=== PATIENT | female | born 1980 | race Caucasian/White ===

== ENCOUNTER 2021-01-06 09:07 | Inpatient (IN) | payer OTHER ==
--- NOTE | 2021-01-04 16:46 | History and Physical Report ---
History of Present Illness Date of examination: 01/06/21 History of present illness: Pt is a G6 P 3023 with EDC of 3 will 39w 2d on 01/06 when she will present for her scheduled RLTCS. Uncomplicated except for anemia. H/o C/S x1. She had an abnormal quad screen but normal CF DNA testing. Past History Past Medical History: other (anemia) Past Surgical History: section Medications and Allergies Allergies Allergy/AdvReac Type Severity Reaction Status Date / Time No Known Allergies Allergy Unverified 01/06/21 09:34 Home Medications Medication Instructions Recorded Confirmed Last Taken Type No Known Home Medications [No 01/06/21 01/06/21 Unknown History Reported Home Medications] Active Meds: see EMR charting Review of Systems All systems: negative (except HPI) - Vital Signs Vital signs: see EMR charting - Physical Exam Cardiovascular: Regular rate Lungs: Positive: Clear to auscultation, Normal air movement Abdomen: Positive: normal appearance, soft Results Result Diagrams: 01/06/21 09:00 All other labs normal. Assessment and Plan - Patient Problems (1) Previous delivery, antepartum Current Visit: No Status: Acute Plan to address problem: PT for scheduled RLTCS at 39w 2 days on 01/06. PT fully consented. Patient fully consented for the surgery. Risks, benefits, and alternatives were all discussed with the patient including risk of bleeding, infection, and potential for injury. Patient understands and accepts these risks. Patient agrees to proceed with surgery. All questions were answered.
[2021-01-06] MEDS ORDERED: METOCLOPRAMIDE 10 MG/2 ML INJ IV NR (09:34)
[2021-01-06] MEDS ORDERED: BICITRA ORAL LIQD 30ML PO NR (09:34)
[2021-01-06] MEDS ORDERED: FAMOTIDINE 20 MG/2 ML INJ IV NR (09:34)
[2021-01-06] MEDS: LACTATED RINGERS 1,000 ML IV SCH ×2 (09:46→10:46)
[2021-01-06] MEDS ORDERED: ceFAZolin/Water 2 GM/20 ML 2 GM/20 ML SYRINGE IV NR (10:00)
[2021-01-06] MEDS ORDERED: OXYTOCIN DRIP 30 UNITS/500 ML BAG IV SCH ×2 (10:00→13:00)
[2021-01-06 10:20] LABS: Basophils % (Auto) 0.5 % (0.0-1.8); Eosinophils # (Auto) 0.1 K/mm3 (0.0-0.4); Eosinophils % (Auto) 1.2 % (0.0-4.3); Hematocrit 35.3 % (30.3-42.9); Hemoglobin 11.7 gm/dl (10.1-14.3); Lymphocytes # (Auto) 1.5 K/mm3 (1.2-5.4); Lymphocytes % (Auto) 21.6 % (13.4-35.0); Mean Corpuscular HGB Conc 33 % (30-34); Mean Corpuscular Volume 88 fl (79-97); Monocytes # (Auto) 0.6 K/mm3 (0.0-0.8); Monocytes % (Auto) 8.4 % (0.0-7.3); Platelet Count 206 K/mm3 (140-440); Red Blood Count 4.03 M/mm3 (3.65-5.03); Red Cell Distribution Width 19.1 % (13.2-15.2)
[2021-01-06] MEDS ORDERED: FLU VACC QUAD 2020-2021 (6 months +)/PF 60 0.5 ML SYRINGE IM ONE (11:30)
[2021-01-06] MEDS ORDERED: ONDANSETRON 4 MG/2 ML INJ ONE (11:54)
[2021-01-06] MEDS ORDERED: LACTATED RINGERS 1,000 ML ONE (11:54)
[2021-01-06] MEDS ORDERED: PHENYLEPHRINE/NS 1,000 MCG/10 ML SYRINGE (OR USE) IV ONE (11:54)
[2021-01-06] MEDS ORDERED: BUPIVACAINE/PF (0.5%) 5 MG/1 ML 30 ML VIAL INFILTRATI ONE (11:54)
[2021-01-06] MEDS ORDERED: dexAMETHasone 20 MG/5 ML VIAL ONE (11:54)
[2021-01-06] MEDS ORDERED: KETOROLAC 30 MG/1 ML INJ ONE (11:54)
[2021-01-06] MEDS ORDERED: SODIUM CHLORIDE 0.9% IRR 1,500 ML BOTTLE IR ONE (12:10)
[2021-01-06] MEDS ORDERED: WATER FOR IRRIG STERILE 1,500 ML BOTTLE IR ONE (12:10)
--- NOTE | 2021-01-06 12:17 | Anesthesia Consultation ---
Anesthesia Consult and Med Hx Date of service: 01/06/21 - Airway Anesthetic Teeth Evaluation: Good ROM Head & Neck: Adequate Mental/Hyoid Distance: Adequate Mallampati Class: Class II Intubation Access Assessment: Probably Good - Pulmonary Exam CTA: Yes - Cardiac Exam Cardiac Exam: RRR - Pre-Operative Health Status ASA Pre-Surgery Classification: ASA2 Proposed Anesthetic Plan: Spinal - Pulmonary Hx Asthma: No COPD: No Hx Pneumonia: No - Cardiovascular System Hx Hypertension: No - Central Nervous System Hx Seizures: No Hx Psychiatric Problems: No - Endocrine Hx Renal Disease: No Hx End Stage Renal Disease: No Hx Hypothyroidism: No Hx Hyperthyroidism: No - Hematic Hx Anemia: No Hx Sickle Cell Disease: No - Other Systems Hx Alcohol Use: No
--- NOTE | 2021-01-06 12:17 | Anesthesia Day of Surgery ---
Anesthesia Day of Surgery - Day of Surgery Patient Examined: Yes Patient H&P Reviewed: Yes Patient is NPO: Yes
--- NOTE | 2021-01-06 12:17 | Progress Note ---
Spinal Anesthesia Block - Spinal Anesthesia Block Start Time: 11:40 Stop Time: 11:46 Performed by:: DUSTIN KING Procedure: Sitting, sterile chlorahexadine 0.5% prep/drape, 1% lidocaine skin local, 25G spinal needle + introduced at L3-4, + CSF, - Heme, [1.9 ml 0.5% bupivacaine + 10 mcg dexmedetomidine] injected, drape removed, patient positioned supine with left uterine displacement, and spinal level verified to be adequate prior to surgery. David GONZALEZ
--- NOTE | 2021-01-06 12:48 | Procedure Note ---
OB Delivery Note - Delivery Date of Delivery: 01/06/21 Surgeon: ENID BARRON Estimated blood loss: other (700 cc) - Section Preop diagnosis: repeat Postop diagnosis: same section procedure: section Disposition: PACU Complications: none Narrative: Indication: 40-year-old -0-2-3 at 39 weeks and 2 days with a history of a prior is here for her scheduled repeat low-transverse Findings: Normal uterus, tubes and ovaries. Clear fluid. No nuchal cord. No significant intra-abdominal scarring. Procedure: Patient taken to the operating room and prepped and draped in the usual fashion. Pfannenstiel skin incision was made and carried down to the underlying fascia. Fascia was incised and the incision was extended bilaterally. Rectus fascia dissected off the rectus muscle both superiorly and inferiorly. Peritoneum identified tented up and entered. Peritoneal incision extended superiorly and inferiorly with good visualization of the bladder. Bladder blade was placed. Uterine incision was made and the incision was extended bilaterally. The baby was delivered in the typical vertex fashion. Baby bulb suctioned at the incision site and again after delivery. Cord was delayed clamped and cut and handed off to waiting team. The placenta was delivered spontaneously. The uterus was exteriorized and cleared of all clots and debris. Uterine incision closed with 0 Vicryl in a running locked fashion followed by a second imbricating layer of 0 Vicryl. Good hemostasis was noted. Her urine was clear. Uterus tubes and ovaries were returned to the abdominal cavity. Gutters were cleared of all clots and debris. Good hemostasis noted. Interceed placed over the uterine incision and over the lower uterine segment in the midline. Attention was turned to the rectus fascia which was reapproximated with 0 Vicryl in a running fashion. Subcutaneous tissue was irrigated and reapproximated with 2-0 Vicryl in a running fashion. Skin was closed with 4-0 Vicryl in a subcuticular fashion followed by Dermabond. The procedure was concluded at this point and the patient tolerated the procedure well. All instrument and lap counts were correct. - A at 1 minute: 8 at 5 minutes: 9 Gender: Female
[2021-01-06] MEDS ORDERED: SIMETHICONE 80 MG CHEW TAB PO PRN (13:00)
[2021-01-06] MEDS ORDERED: WITCH HAZEL/ GLYCERIN PAD TP PRN (13:00)
[2021-01-06] MEDS ORDERED: NALOXONE 0.4 MG/1 ML INJ IV PRN (13:00)
[2021-01-06] MEDS ORDERED: LANOLIN/ZINC/DIMETHICONE (LANSINOH) 7 GM TP PRN (13:00)
[2021-01-06] MEDS ORDERED: ONDANSETRON 4 MG/2 ML INJ IV PRN (13:00)
--- NOTE | 2021-01-06 13:13 | Progress Note ---
Regional Anesthesia Block - Regional Anesthesia Block Start Time: 13:05 Stop Time: 13:10 Performed By:: DUSTIN KING Procedure: U/S guided bilateral tap block performed for post-operative pain requested by Dr. Whitfield. H&P & labs reviewed. Procedure explained, questions answered, consent obtained. Patient in the supine position with ekg, blood pressure cuff and pulse ox on and working in PACU. Timeout performed immediately before start of procedure. Probe placed in the mid-axillary line and the external oblique, internal oblique, and transverse abdominus muscles identified. Skin was cleansed with chlorahexadine 0.5% and allowed to dry. A 4" 20 G Marie echogenic needle was advanced in plane until the tip was in the fascial plane between the internal oblique and the transverse abdominus. After negative aspiration 35 ml/side of [30 ml 0.5% Bupivacaine], [10 mg dexamethasone], and [40 ml sterile saline] was injected in 5 ml increments with negative aspiration in between. Patient tolerated procedure well. David GONZALEZ
[2021-01-06] MEDS: KETOROLAC 30 MG/1 ML INJ IV PRN ×2 (17:20→22:56)
[2021-01-06] MEDS ORDERED: D5W/LACTATED RINGERS 1,000 ML IV SCH (18:00)
[2021-01-06] MEDS: oxyCODONE /ACETAMINOPHEN 5-325MG TAB PO PRN (20:18)
[2021-01-06] MEDS ORDERED: SENNOSIDES 8.6 MG TAB PO PRN (22:00)
[2021-01-06] MEDS ORDERED: MAGNESIUM HYDROXIDE (MOM) ORAL LIQD UDC PO PRN (22:00)
[2021-01-07] MEDS: oxyCODONE /ACETAMINOPHEN 5-325MG TAB PO PRN ×3 (02:21→15:59)
[2021-01-07] MEDS: KETOROLAC 30 MG/1 ML INJ IV PRN (05:11)
[2021-01-07 07:49] LABS: Hemoglobin 10.3 gm/dl (10.1-14.3)
[2021-01-07] MEDS: IBUPROFEN 800 MG TAB PO PRN ×2 (12:08→22:44)
--- NOTE | 2021-01-07 13:32 | Post Anesthesia Evaluation ---
- Post Anesthesia Evaluation Patient Participated: Yes Airway Patent: Yes Stable Respiratory Function: Yes Nausea/Vomiting: No Temp > 96.8F: Yes Pain Manageable: Yes Adequeate Hydration: Yes Anesthesia Complications: No Block Receding Appropriately: Yes
--- NOTE | 2021-01-07 22:41 | Progress Note ---
Assessment and Plan A: S/P Repeat LTCS p: Continue routine pp care Encourage ambulation D/C home in 24-48 hrs if stable Subjective - Subjective Date of service: 01/07/21 Principal diagnosis: s/p Repeat LTCS Patient reports: appetite normal, voiding normally, pain well controlled, flatus, ambulating normally [place]: doing well, bottle feeding Objective - Vital Signs Latest vital signs: Vital Signs Temp Pulse Resp BP Pulse Ox 01/07/21 15:55 98.5 F 88 20 102/51 96 01/07/21 12:24 97.9 F 89 20 96/49 97 01/07/21 07:41 97.6 F 73 20 100/48 97 01/07/21 05:41 18 01/07/21 05:11 18 01/07/21 04:43 98.2 F 67 20 102/57 96 01/07/21 03:21 18 01/07/21 02:21 18 01/07/21 00:33 98.0 F 73 18 110/61 95 01/06/21 23:26 18 01/06/21 22:56 18 Intake and Output 01/07/21 01/07/21 01/07/21 06:59 14:59 22:59 Intake Total 480 120 200 Output Total 600 200 Balance -120 -80 200 Intake: Oral 480 120 200 Output: Urine 600 200 Indwelling Catheter 400 Void 200 200 Other: Total, Intake Amount 240 120 200 Total, Output Amount 200 200 # Voids Void 1 - Exam Breasts: Present: normal Abdomen: Present: normal appearance, soft, normal bowel sounds Vulva: both: normal Uterus: Present: normal, firm, fundal height below umbilicus Extremities: Present: normal Incision: Present: normal, dry, intact
[2021-01-08] MEDS: oxyCODONE /ACETAMINOPHEN 5-325MG TAB PO PRN (08:05)
--- NOTE | 2021-01-08 12:35 | Discharge Summary ---
Providers - Providers Date of Admission: 01/06/21 09:07 Date of discharge: 01/08/21 Attending physician: ENID BARRON Primary care physician: ENID BARRON Hospitalization Reason for admission: section Delivery: Procedure: repeat low transverse Episiotomy: none Laceration: none Incision: dry, intact (no drainage or bleeding noted) Other procedures: none complications: none Discharge diagnosis: IUP at term delivered baby: female Hospital course: See admission H&P; OB operative summary and PP progress notes Condition at discharge: Good Disposition: DC-01 TO HOME OR SELFCARE - Discharge Diagnoses (1) Status post repeat low transverse section Status: Acute (2) Anemia Status: Acute Qualifiers: Anemia type: other cause Other causes of anemia: acute posthemorrhagic Qualified Code(s): D62 - Acute posthemorrhagic anemia Comment: Asymptomatic Plan - Discharge Medications Prescriptions: Ibuprofen [Motrin 800 MG tab] 800 mg PO Q6H PRN #30 tablet PRN Reason: Pain, Mild (1-3) oxyCODONE /ACETAMINOPHEN [Percocet 5/325 mg] 1 tab PO Q6H PRN #30 tablet PRN Reason: Pain, Moderate (4-6) - Provider Discharge Summary Activity: routine, no sex for 6 weeks, no heavy lifting 4 weeks, no strenuous exercise Diet: other (Iron rich diet) Instructions: routine Additional instructions: [] Smoking cessation referral if applicable(refer to patient education folder for contact #) [] Refer to [facility] Booklet Call your doctor immediately for: * Fever > 100.5 * Heavy vaginal bleeding ( >1 pad per hour) * Severe persistent headache * Shortness of breath * Reddened, hot, painful area to leg or breast * Drainage or odor from incision. * Keep incision clean and dry at all times and follow doctor's instructions regarding bathing/showering - Follow up plan Follow up: ENID BARRON MD [Primary Care Provider] - 14 Days Forms: [facility] Discharge Summary
[2021-01-08] MEDS: IBUPROFEN 800 MG TAB PO PRN (13:26)
[2021-01-08 16:19] VITALS: BP 107/59
== END 2021-01-08 18:45 | disposition home or self-care (01) | DRG 787 ==
LOC: APU 09:07 → OB 14:29
PROVIDERS: ADMIT Obstetrics & Gynecology; ATTEND Obstetrics & Gynecology
PROC: 10D00Z1 Extraction of Products of Conception, Low, Open Approach (ICD-10-PCS; principal; 2021-01-06)
DX: O34.219 Maternal care for unspecified type scar from previous cesarean delivery (principal); D62 Acute posthemorrhagic anemia; Z20.822 Contact with and (suspected) exposure to COVID-19; N85.8 Other specified noninflammatory disorders of uterus; Z3A.39 39 weeks gestation of pregnancy; Z37.0 Single live birth; O99.02 Anemia complicating childbirth
CPT/HCPCS: 36415; 85014; 85018; 85025; 86592; 86850; 86900; 86901; 90471; 90686; G0378; A6250; C1765; G0008; J1100; J1885; J2370; J2405; J2765; J3490; J7120; J7121; U0003